=== PATIENT | male | born 1945 | race Caucasian/White ===

== ENCOUNTER → 2020-09-12 12:43 | Outpatient (CLI) | payer MEDICARE, OTHER, SELFPAY ==
[2020-09-12 13:51] LABS: Coronavirus 19 IgG Antibody Positive (Negative)
[2020-09-12 13:52] LABS: Coronavirus 19 IgM Antibody Negative (Negative)
== END ==
PROVIDERS: Visit Provider Ophthalmology
DX: Z01.812 Encounter for preprocedural laboratory examination (principal); Z20.822 Contact with and (suspected) exposure to COVID-19; Z86.16 Personal history of COVID-19
CPT/HCPCS: 36415; 86328

== ENCOUNTER → 2020-09-26 09:05 | Outpatient (CLI) | payer MEDICARE, OTHER, SELFPAY ==
[2020-09-26 10:27] LABS: Coronavirus 19 IgG Antibody Positive (Negative); Coronavirus 19 IgM Antibody Negative (Negative)
== END ==
PROVIDERS: Visit Provider Ophthalmology
DX: Z01.818 Encounter for other preprocedural examination (principal); Z20.822 Contact with and (suspected) exposure to COVID-19; Z86.16 Personal history of COVID-19; H26.21 Cataract with neovascularization
CPT/HCPCS: 36415; 86328

== ENCOUNTER 2020-09-27 08:58 | Day surgery (SDC) | payer MEDICARE, OTHER, SELFPAY ==
[2020-09-12 10:03] VITALS: BMI 26.4
[2020-09-27 09:22] VITALS: BP 131/80; PULSE 84; RESP 18; TEMP 36.1; O2SAT 96
[2020-09-27 09:45] VITALS: BP 131/80; PULSE 84; RESP 18; TEMP 36.1; O2SAT 96
== END 2020-09-27 09:50 | disposition home or self-care (01) ==
LOC: OUTP 09:02
PROVIDERS: PCP Nurse Practitioner; Visit Provider Ophthalmology
PROC: (CPT 66821; principal; 2020-09-27 09:00)
DX: H26.491 Other secondary cataract, right eye (principal); H02.834 Dermatochalasis of left upper eyelid; H02.831 Dermatochalasis of right upper eyelid; Z95.828 Presence of other vascular implants and grafts; Z88.0 Allergy status to penicillin; Z88.2 Allergy status to sulfonamides; Z79.82 Long term (current) use of aspirin; Z79.01 Long term (current) use of anticoagulants; Z79.899 Other long term (current) drug therapy
CPT/HCPCS: 66821